=== PATIENT | female | born 1945 | race Caucasian/White ===

== ENCOUNTER 2021-04-25 13:28 | Outpatient (REF) | payer MEDICARE, SELFPAY ==
--- NOTE | ~2021-04-25 | MM_ITS ---
EXAMINATION: MM SCREENING DIGITAL BREAST TOMOSYNTHESIS, BILATERAL CLINICAL INFORMATION: Screening. Asymptomatic. The lifetime risk of breast cancer based on the Tyrer-Cuzick Model is under 2%. COMPARISON: Mammography: 01/06/2020, 10/26/2018, 10/14/2017 TECHNIQUE: Digital breast tomosynthesis is performed in both the craniocaudal and mediolateral oblique views along with computer-aided detection (CAD). Synthesized 2D images are generated from the tomosynthesis. FINDINGS: There are scattered areas of fibroglandular density (ACR BI-RADS breast composition Category b). There are no significant masses, abnormal calcifications, or other abnormalities. Parenchymal pattern is similar to prior studies. No developing density. The axilla and skin contours are unremarkable. MM/MM tomosynthesis screening BI IMPRESSION: No mammographic evidence of malignancy. ASSESSMENT: BI-RADS 1: Negative RECOMMENDATION: Routine annual mammography screening. This patient's information was entered into a reminder system with a target due date for their next mammogram.
== END 2021-04-25 13:29 | disposition home or self-care (01) ==
LOC: HO.MAMMO 13:28
PROVIDERS: Visit Provider Internal Medicine
DX: Z12.31 Encounter for screening mammogram for malignant neoplasm of breast (principal)
CPT/HCPCS: 77063; 77067

== ENCOUNTER 2022-04-30 10:26 | Outpatient (REF) | payer MEDICARE, SELFPAY ==
--- NOTE | ~2022-04-30 | MM_ITS ---
EXAMINATION: MM SCREENING DIGITAL BREAST TOMOSYNTHESIS, BILATERAL CLINICAL INFORMATION: Screening. Asymptomatic. The lifetime risk of breast cancer based on the Tyrer-Cuzick Model is 2%. COMPARISON: Mammography: 04/25/2021, 03/07/2020, 02/25/2019 TECHNIQUE: Digital breast tomosynthesis is performed in both the craniocaudal and mediolateral oblique views along with computer-aided detection (CAD). Synthesized 2D images are generated from the tomosynthesis. FINDINGS: There are scattered areas of fibroglandular density (ACR BI-RADS breast composition Category b). There are no significant masses, abnormal calcifications, or other abnormalities. Parenchymal pattern is similar to prior studies. There is no developing density or architectural abnormality. The axilla and skin contours are unremarkable. No significant changes. MM/MM tomosynthesis screening BI IMPRESSION: No mammographic evidence of malignancy. ASSESSMENT: BI-RADS 1: Negative RECOMMENDATION: Routine annual mammography screening. This patient's information was entered into a reminder system with a target due date for their next mammogram.
== END 2022-04-30 10:27 | disposition home or self-care (01) ==
LOC: HO.MAMMO 10:26
PROVIDERS: PCP Internal Medicine; Visit Provider Internal Medicine
DX: Z12.31 Encounter for screening mammogram for malignant neoplasm of breast (principal)
CPT/HCPCS: 77063; 77067

== ENCOUNTER 2023-05-06 13:14 | Outpatient (REF) | payer MEDICARE, SELFPAY | END 2023-05-06 13:15 | disposition home or self-care (01) | LOC: HO.MAMMO 13:14 | PROVIDERS: Visit Provider Internal Medicine | DX: Z12.31 Encounter for screening mammogram for malignant neoplasm of breast (principal) | CPT/HCPCS: 77063; 77067 ==

== ENCOUNTER → 2023-05-06 13:30 | Outpatient (BNV) | payer MEDICARE, SELFPAY | PROVIDERS: Visit Provider Radiology Diagnostic Radiology | DX: Z12.31 Encounter for screening mammogram for malignant neoplasm of breast (principal) | CPT/HCPCS: 77063; 77067 ==

== ENCOUNTER 2024-05-11 09:30 | Outpatient (REF) | payer MEDICARE, SELFPAY ==
--- NOTE | ~2024-05-11 | MM_ITS ---
EXAMINATION: MM SCREENING DIGITAL BREAST TOMOSYNTHESIS, BILATERAL CLINICAL INFORMATION: Screening. Asymptomatic. COMPARISON: Mammography: Comparison is made with available priors TECHNIQUE: Digital breast mammography with tomosynthesis is performed in both the craniocaudal and mediolateral oblique views along with computer-aided detection (CAD). FINDINGS: The breasts are heterogeneously dense, which may obscure small masses (ACR BI-RADS breast composition Category c). There are no significant masses, abnormal calcifications, or other abnormalities. MM/MM tomosynthesis screening BI IMPRESSION: No mammographic evidence of malignancy. ASSESSMENT: BI-RADS BI-RADS 1 - Negative RECOMMENDATION: Routine annual mammography screening. 1 year F/U This examination should not preclude the clinical evaluation of a suspicious palpable abnormality. This patient's information was entered into a reminder system with a target due date for their next mammogram. Electronically signed by: Kiki Persaud DO 05/24/2024 05:22 PM EDT
== END 2024-05-11 09:31 | disposition home or self-care (01) ==
LOC: HO.MAMMO 09:30
PROVIDERS: PCP Physician Assistant Medical; Visit Provider Obstetrics & Gynecology
DX: Z12.31 Encounter for screening mammogram for malignant neoplasm of breast (principal)
CPT/HCPCS: 77063; 77067

== ENCOUNTER → 2024-05-11 09:30 | Outpatient (BNV) | payer MEDICARE, SELFPAY | PROVIDERS: PCP Physician Assistant Medical; Visit Provider Internal Medicine | DX: Z12.31 Encounter for screening mammogram for malignant neoplasm of breast (principal) | CPT/HCPCS: 77063; 77067 ==

== ENCOUNTER 2025-05-16 09:03 | Outpatient (REF) | payer MEDICARE, SELFPAY ==
--- NOTE | ~2025-05-16 | MM_ITS ---
EXAMINATION: MM SCREENING DIGITAL BREAST TOMOSYNTHESIS, BILATERAL CLINICAL INFORMATION: Screening. Asymptomatic. COMPARISON: Mammography: Comparison is made with available priors TECHNIQUE: Digital breast mammography with tomosynthesis is performed in both the craniocaudal and mediolateral oblique views along with computer-aided detection (CAD). FINDINGS: The breasts are heterogeneously dense, which may obscure small masses. There are no significant masses, abnormal calcifications, or other abnormalities. MM/MM tomosynthesis screening BI IMPRESSION: No mammographic evidence of malignancy. ASSESSMENT: BI-RADS Category 1: Negative RECOMMENDATION: Routine annual mammography screening. 1 year F/U This examination should not preclude the clinical evaluation of a suspicious palpable abnormality. This patient's information was entered into a reminder system with a target due date for their next mammogram. Electronically signed by: Kiki Persaud DO 05/17/2025 06:00 PM EDQiana
--- OUTSIDE RECORDS SUMMARY | 2025-05-16 10:17 | XMS_ITS | Encounter Summary ---
Author Organization [facility] Address [address] [place] [address] Care Team Providers Care Cattle Rancher Name Role Phone Jacinta Bowling PA-C Primary Care Provi tip Miller Mejias MD Unavailable Unavailable Encounter Details Date Type Department Care Team (Late st Contact Info) Description 12/06/2024 Scanned Document [facility] [address] [place] [address] Plastic Surgery, Scan Social History Tobacco Use Types Packs/Day Years Used Date Smoking Tobacco: Former Cigarettes Q uit: 1996 Smokeless Tobacco: Never Alcohol Use Standard Drinks/Week Comments Yes 2 (1 standard drink = 0.6 oz pur e alcohol) PHQ-2 Answer Date Recorded PHQ-2 Total Score 0 04/13/2024 Comments No Sex and Gender Information Value Date Recorded Sex Assigned at Female 02/09/2024 11:01 AM EDT Legal Sex Female 8:31 AM EDT Gender Identity Not on file Sexual Orientation Not on file documented as of this encounter Plan of Treatment Upcoming Encounters Date Type Department Care Team (Late st Contact Info) Description 04/20/2026 9:30 AM EDT Office Visit [address] [place] [phone] Jacinta Bowling PA-C [address] [place] [address] documented as of this encounter Visit Diagnoses Not on filedocumented in this encounter Care Teams Cattle Rancher Relationship Specialty Start Date End Date Jacinta Bowling PA-C [address] [place] [address] PCP - General Internal Medicine 02/11/24 Miller Mejias MD [address] [place] [address] Referring Provider Gastroenterology 04/15/24 Barbara Cid Nurse Practitioner Urogynecology 03/22/24 documented as of this encounter
--- OUTSIDE RECORDS SUMMARY | 2025-05-16 10:17 | XMS_ITS | Encounter Summary ---
Author Organization [facility] Address [address] [place] [address] Care Team Providers Care Supervisor Drying And Winding Name Role Phone Jacinta Bowling PA-C Primary Care Provi tip Miller Mejias MD Unavailable Unavailable Encounter Details Date Type Department Care Team (Late Contact Info) Description 03/23/2024 Scanned Document [address] [phone] Jacinta Bowling PA-C [address] [place] [address] Social History Tobacco Use Types Packs/Day Years Used Date Smoking Tobacco: Former Cigarettes Q uit: 1996 Smokeless Tobacco: Never Alcohol Use Standard Drinks/Week Comments Yes 2 (1 standard drink = 0.6 oz pur e alcohol) PHQ-2 Answer Date Recorded PHQ-2 Total Score 0 02/11/2024 Comments No Sex and Gender Information Value Date Recorded Sex Assigned at Female 02/09/2024 11:01 AM EDT Legal Sex Female 8:31 AM EDT Gender Identity Not on file Sexual Orientation Not on file documented as of this encounter Plan of Treatment Upcoming Encounters Date Type Department Care Team (Late Contact Info) Description 04/20/2026 9:30 AM EDT Office Visit [address] [phone] Jacinta Bowling PA-C [address] [facility] [place] [address] documented as of this encounter Visit Diagnoses Not on filedocumented in this encounter Care Teams Supervisor Drying And Winding Relationship Specialty Start Date End Date Jacinta Bowling PA-C [address] [place] [address] PCP - General Internal Medicine 02/11/24 Miller Mejias MD [address] [address] Referring Provider Gastroenterology 04/15/24 Barbara Cid Nurse Practitioner Urogynecology 03/22/24 documented as of this encounter
--- OUTSIDE RECORDS SUMMARY | 2025-05-16 10:17 | XMS_ITS | Encounter Summary ---
Author Organization [facility] Address [address] [place] [address] Care Team Providers Care Hog Scalder Name Role Phone Jacinta Bowling PA-C Primary Care Provi tip Miller Mejias MD Unavailable Unavailable Encounter Details Date Type Department Care Team (Late st Contact Info) Description 05/11/2025 Orders Only [facility] [address] [facility] [address] [place] [phone] Jacinta Bowling PA-C [address] [place] [address] Low TSH level (Primary Dx) Social History Tobacco Use Types Packs/Day Years Used Date Smoking Tobacco: Former Cigarettes Q uit: 1996 Smokeless Tobacco: Never Alcohol Use Standard Drinks/Week Comments Yes 2 (1 standard drink = 0.6 oz pur e alcohol) [facility] Utilities Answer Date Recorded In the past 12 months has [employer], gas, oil, or water [employer] threatened to shut off services in your home? No 04/17/2025 Social Connection and Isolation Panel Answer Date Recorded In a typical week, how many times do you talk on the phone with family, friends, or neighbors? Three times a week 04/17/2025 Frequency of Social Gatherin gs with Friends and Family Not on file 04/17/2025 Attends Scientologist Services Not on file 04/17 Active Member of Clubs or Organizations Not on f ile 04/17/2025 Attends Club or Organization Meetings Not on corby e 04/17/2025 Marital Status Not on file 04/17/2025 AUDIT-C Answer Date Recorded Q1: How often do you have a drink containing alc ohol? 2-4 times a month 04/17/2025 Q2: How many drinks containi ng alcohol do you have on a typical day when you are drinking? 1 or 2 04/17/2025 Frequency of Binge Drinking Not on file 03/29 PHQ-2 Answer Date Recorded PHQ-2 Total Score 0 04/17/2025 Hunger Vital Sign Answer Date Recorded Within the past 12 months, y ou worried that your food would run out before you got the money to buy more. Never true 04/17/20 25 Within the past 12 months, t he food you bought just didn't last and you didn't have money to get more. Never true 04/17/2025 PRAPARE - Transportation Answer Date Re corded In the past 12 months, has l ack of transportation kept you from medical appointments or from getting medications? No 03/29 In the past 12 months, has l ack of transportation kept you from meetings, work, or from getting things needed for daily living? No 04/17/2025 Housing Stability Vital Sign Answer Rory e Recorded In the last 12 months, was t here a time when you were not able to pay the mortgage or rent on time? No 04/17/2025 In the past 12 months, how m any times have you moved where you were living? 0 04/17/2025 At any time in the past 12 m [facility], were you homeless or living in a chcf (including now)? No 04/17/2025 Education Answer Date Recorded What is the highest level of school you have completed or the highest degree you have received? Associate degree: occupational, technical, or vocational program 04/17/2025 Comments No Sex and Gender Information Value Date Recorded Sex Assigned at Female 02/09/2024 11:01 AM EDT Legal Sex Female 8:31 AM EDT Gender Identity Not on file Sexual Orientation Not on file documented as of this encounter Plan of Treatment Upcoming Encounters Date Type Department Care Team (Late st Contact Info) Description 04/20/2026 9:30 AM EDT Office Visit [address] [phone] Jacinta Bowling PA-C [address] [place] [address] Scheduled Orders Name Type Priority Associated Diagnoses Orde r Schedule TSH Reflex to Free T4 Lab Routine Low TSH level Ordered: 05/11/2025 documented as of this encounter Visit Diagnoses Diagnosis Low TSH level- Primary documented in this encounter Care Teams Hog Scalder Relationship Specialty Start Date End Date Jacinta Bowling PA-C [address] [place] [address] PCP - General Internal Medicine 02/11/24 Miller Mejias MD [address] [place] [address] Referring Provider Gastroenterology 04/15/24 Barbara Cid Nurse Practitioner Urogynecology 03/22/24 documented as of this encounter
--- OUTSIDE RECORDS SUMMARY | 2025-05-16 10:17 | XMS_ITS | Clinical Summary ---
Author Organization [facility] Address [address] [place] [address] Care Team Providers Care Area Supervisor Name Role Phone Jacinta Bowling PA-C Primary Care Provi tip Miller Mejias MD Unavailable Unavailable Allergies Active Allergy Reactions Criticality Noted Date Comments Levofloxacin Hives,Rash/Dermatitis Medium 02/11/2024 IV administered Medications lidocaine (XYLOCAINE) 2 % solution 4 Active PHOSPHATIDYL CHOLINE PO Take 300 mg by mouth 2 times a day. Active Ca Phosphate-Cholec alciferol (CALTRATE GUMMY BITES PO) Take 500 mg by mouth. 2 gummies Active docusate sodium (COLACE) 100 MG capsule Take 1 capsule (100 mg total) by mouth once as needed for constipation . Active traZODone (DESYREL) 50 MG tabletIndication s:Primary insomnia Take 1 tablet (50 mg total) by mouth nightly. 90 tablet 3 5 Active PANTOprazole (PROTONIX) 40 MG EC tabletIndication s:Gastroesophage al reflux disease, unspecified whether esophagitis present TAKE 1 TABLET TWICE A DAY 180 tablet 5 Active verapamil (VERELAN) 240 MG 24 hr capsuleIndicatio ns:Migraine without status migrainosus, not intractable, unspecified migraine type Take 1 capsule (240 mg total) by mouth nightly. 90 capsule 3 5 Active SUMAtriptan (IMITREX) 100 MG tabletIndication s:Other complicated headache syndrome,Migrain e without status migrainosus, not intractable, unspecified migraine type TAKE 1 TABLET ONCE NEEDED FOR MIGRAINE. MAY REPEAT IN 2 HOURS IF UNRESOLVED. DO NOT EXCEED 200MG IN 24 HOURS 9 tablet 3 5 Active Bacillus Coagulans-Inulin (ALIGN PREBIOTIC-PROBIO TIC PO) Take by mouth. 04/19/20 25 Discontinu ed(Med List Clean-up/O ld Med - No E-Cancel/N o AVS) acetaminophen (TYLENOL) 650 MG CR tablet Take 1 tablet (650 mg total) by mouth 3 times daily (every 8 hours) as needed for mild pain. 2 tabs in a.m. 04/19/20 25 Discontinu ed(Med List Clean-up/O ld Med - No E-Cancel/N o AVS) Active Problems Problem Noted Date Diagnosed Date OAB (overactive bladder) 04/15/2024 Assessment & Plan (04/19/2025 10:35 AM EDT): Follows with urogynecology. Unable to tolerate meds secondary to constipation. Does wear a pad at night due to a.m. incontinence. Does not have any issues with incontinence during the day. Migraines 02/11/2024 Assessment & Plan (04/19/2025 10:35 AM EDT): On verapamil for prevention. 1-2 headaches a month. Takes Imitrex without issue. Headaches have not changed. GERD (gastroesophageal reflux disease) 4 Assessment & Plan (04/19/2025 9:48 AM EDT): Stable with PPI. Underwent dilatation of his Schatzki's ring back in 2023. Patient has been asymptomatic. Primary insomnia 02/11/2024 Assessment & Plan (04/19/2025 10:35 AM EDT): Aches trazodone at night for sleep. 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 Following with Ortho. Vitamin D deficiency 02/11/2024 Assessment & Plan (04/19/2025 10:26 AM EDT): Compliant with vitamin D supplements. Will check vitamin D levels. Encounters Date Type Department Care Team Description 05/11/2025 Orders Only [facility] [address] [facility] [address] [place] [address] Jacinta Bowling PA-C Low TSH level (Primary Dx) 04/19/2025 9:30 AM EDT Office Visit [facility] [address] [facility] [address] [place] [address] Jacinta Bowling PA-C Encounter for Medicare annual wellness exam (Primary Dx); Primary insomnia; Other migraine without status migrainosus, not intractable ; Gastroesophageal reflux disease without esophagitis; Primary osteoarthritis involving multiple joints; Vitamin D deficiency; OAB (overactive bladder) 04/19/2025 Travel from Last 3 Months Immunizations Immunization Administration Dates Next Due Pneumococcal Conjugate 13-Valent 04/14/2020,04/28 Pneumococcal Polysaccharide 23-Valent 04/25/2021 Zoster Vaccine Live/Attenuated (Zostavax) 2012 Zoster Vaccine Recombinant (Shingrix) 04/12/2023 Social History Tobacco Use Types Packs/Day Years Used Date Smoking Tobacco: Former Cigarettes Q uit: 1996 Smokeless Tobacco: Never Tobacco Cessation:Counseling Given: Not Answered Alcohol Use Standard Drinks/Week Comments Yes 2 (1 standard drink = 0.6 oz pur e alcohol) [facility] Utilities Answer Date Recorded In the past 12 months has [employer] gas, oil, or water [employer] threatened to shut off services in your home? No 04/17/2025 Social Connection and Isolation Panel Answer Date Recorded In a typical week, how many times do you talk on the phone with family, friends, or neighbors? Three times a week 04/17/2025 Frequency of Social Gatherin gs with Friends and Family Not on file 04/17/2025 Attends Confucianism Services Not on file 04/17 Active Member [...] any time in the past 12 m [facility], were you homeless or living in a half-way (including now)? No 04/17/2025 Education Answer Date [...] on file Sexual Orientation Not on file Last Filed Vital Signs Vital Sign Reading Time Taken Comments Blood Pressure 138/78 04/19/2025 10:34 AM EDT Pulse 76 04/19/2025 9:29 AM EDT Temperature 36 C (96.8 F) 04/19/2025 9:29 AM EDT Respiratory Rate 18 04/19/2025 9:29 AM EDT Oxygen Saturation 98% 04/19/2025 9:29 AM EDT Inhaled Oxygen Concentration - - Weight 64.8 kg (142 lb 12.8 oz) 04/19/2025 9:29 AM EDT Height 162.6 cm (5' 4 ) 04/19/2025 9:29 AM EDT Body Mass Index 24.51 04/19/2025 9:29 AM EDT Plan of Treatment Upcoming Encounters Date Type Department Care Team (Late st Contact Info) Description 04/20/2026 9:30 AM EDT Office Visit [facility] [address] [facility] [address] [place] [phone] Jacinta Bowling PA-C [address] [place], [place] [phone] Health Maintenance Due Date Last Done Comments Advance Care Planning 1945 DTaP/Tdap/Td Vaccines (1 - Tdap) 1965 Zoster (Shingles) Vaccine (3 of 3) 06/07/2023 04/12/2023, 01/12/2013 Influenza Vaccine 02/25/2025 COVID-19 Vaccine (1 - season) 2025 Physical 04/15/2025 04/15/2024 Annual Wellness Visit 04/20/2026 04/19/2025 , 04/15/2024, 04/15/2024 (Previously Completed) Pneumococcal Vaccines 50+ Completed 2020, 04/14/2020, 05/23/2017 DXA Bone Density (Females,Ages 65 and older) Discontinued Hepatitis B Vaccines Aged Out No long er eligible based on patient's age to complete this topic Hepatitis C Virus Screening Discontinued RSV Vaccine 50 years and older and Patients Discontinued Procedures Procedure Name Priority Date/Time Associated Diagnosis Comments URINALYSIS WITH MICROSCOPIC Routine 05/10/2025 Encounter for Medicare annual wellness exam Primary insomnia Other migraine without status migrainosus, not intractable Gastroesophageal reflux disease without esophagitis Primary osteoarthritis involving multiple joints Vitamin D deficiency OAB (overactive bladder) LIPID PANEL WITH NONHDL Routine 05/10/2025 Encounter for Medicare annual wellness exam Primary insomnia Other migraine without status migrainosus, not intractable Gastroesophageal reflux disease without esophagitis Primary osteoarthritis involving multiple joints Vitamin D deficiency OAB (overactive bladder) TSH REFLEX TO FREE T4 Routine 05/10/2025 Encounter for Medicare annual wellness exam Primary insomnia Other migraine without status migrainosus, not intractable Gastroesophageal reflux disease without esophagitis Primary osteoarthritis involving multiple joints Vitamin D deficiency OAB (overactive bladder) VITAMIN D, 25-HYDROXY Routine 05/10/2025 Encounter for Medicare annual wellness exam Primary insomnia Other migraine without status migrainosus, not intractable Gastroesophageal reflux disease without esophagitis Primary osteoarthritis involving multiple joints Vitamin D deficiency OAB (overactive bladder) HEPATIC FUNCTION PANEL Routine 05/10/2025 Encounter for Medicare annual wellness exam Primary insomnia Other migraine without status migrainosus, not intractable Gastroesophageal reflux disease without esophagitis Primary osteoarthritis involving multiple joints Vitamin D deficiency OAB (overactive bladder) BASIC METABOLIC PANEL Routine 05/10/2025 Encounter for Medicare annual wellness exam Primary insomnia Other migraine without status migrainosus, not intractable Gastroesophageal reflux disease without esophagitis Primary osteoarthritis involving multiple joints Vitamin D deficiency OAB (overactive bladder) COMPLETE BLOOD COUNT, WITH DIFFERENTIAL Routine 05/10/2025 Encounter for Medicare annual wellness exam Primary insomnia Other migraine without status migrainosus, not intractable Gastroesophageal reflux disease without esophagitis Primary osteoarthritis involving multiple joints Vitamin D deficiency OAB (overactive bladder) from Last 3 Months Results * TSH REFLEX FREE T4 (05/10/2025) TSH, Highly Sensitive 0.005 MIU/L [facility] Blood specimen / Unknown 05/10/2025 us Jacinta Bowling PA-C LAB BLOOD ORDERABLE S Final Result [facility] * Lipid panel with nonHDL (05/10/2025) Blood Blood specimen / Unknown 05/10/2025 Jacinta Rojas Dash KIMBALL-C LAB BLOOD ORDERABLE S Final Result Performing Organization Address [facility] de Phone Number [facility] * Complete Blood Count, with Differential (05/10/2025) Blood specimen / Unknown 05/10/2025 us Jacinta oCnnfish KIMBALL-C LAB BLOOD ORDERABLE S Final Result Performing Organization Address [facility] de Phone Number [facility] * VITAMIN D, 25-HYDROXY (05/10/2025) Blood specimen / Unknown 05/10/2025 Jacinta Connfish KIMBALL-C LAB BLOOD ORDERABLE S Final Result Performing Organization Address [facility] de Phone Number [facility] * Urinalysis with Microscopic (05/10/2025) Urine Urine specimen obtained by clean catch procedure / Unknown 05/10/2025 Jacinta Crystal KIMBALL-C URINE ORDERABLES Fi nal Result Performing Organization Address [facility] de Phone Number [facility] * HEPATIC FUNCTION PANEL (05/10/2025) Blood specimen / Unknown 05/10/2025 Jacintabeto KIMBALL-C LAB BLOOD ORDERABLE S Final Result Performing Organization Address [facility] de Phone Number [facility] * Basic Metabolic Panel (05/10/2025) Blood specimen / Unknown 05/10/2025 Jacinta Crystal K[facility]ALL-C LAB BLOOD ORDERABLE S Final Result Performing Organization Address [facility] de Phone Number [facility] from Last 3 Months Insurance [employer] MEDICARE OUT OF NETWORK Care Teams Area Supervisor Relationship Specialty Start Date End Date Jacinta Bowling PA-C [address] [place] [address] PCP - General Internal Medicine 02/11/24 Miller Mejias MD [address] [place] [address] Referring Provider Gastroenterology 04/15/24 Barbara Cid Nurse Practitioner Urogynecology 03/22/24
--- OUTSIDE RECORDS SUMMARY | 2025-05-16 10:17 | XMS_ITS | Encounter Summary ---
Author Organization [facility] Address [address] [place] [address] Care Team Providers Care Exchange Consultant Name Role Phone Jacinta Bowling PA-C Primary Care Provi tip Miller Mejias MD Unavailable Unavailable Encounter Details Date Type Department Care Team (Late Contact Info) Description 06/08/2024 Scanned Document [address] [phone] Jacinta Bowling PA-C [address] [place], [place] [phone] Social History Tobacco Use Types Packs/Day Years [...] Description 04/20/2026 9:30 AM EDT Office Visit [address] [phone] Jacinta Bowling PA-C 100 [facility] [place] [address] documented as of this encounter Visit Diagnoses Not on filedocumented in this encounter Care Teams Exchange Consultant Relationship Specialty Start Date End Date Jacinta Bowling PA-C [address] [place] [address] PCP - General Internal Medicine 02/11/24 Miller Mejias MD [address] [place] [address] Referring Provider Gastroenterology 04/15/24 Barbara Cid Nurse Practitioner Urogynecology 03/22/24 documented as of this encounter
--- OUTSIDE RECORDS SUMMARY | 2025-05-16 10:17 | XMS_ITS | Encounter Summary ---
Author Organization [facility] Address [address] [place] [address] Care Team Providers Care Financial Service Rep Name Role Phone Jacinta Bowling PA-C Primary Care Provi tip Miller Mejias MD Unavailable Unavailable Encounter Details Date Type Department Care Team (Late Contact Info) Description 11/03/2024 Scanned Document [facility] PLASTIC SURG SCAN Plastic Surgery, Scan Social History Tobacco Use [...] Description 04/20/2026 9:30 AM EDT Office Visit [address] [place] [address] [phone] Jacinta Bowling PA-C [address] [place] [phone] documented as of this encounter Visit Diagnoses Not on filedocumented in this encounter Care Teams Financial Service Rep Relationship Specialty Start Date End Date Jacinta Bowling PA-C [address] [place] [address] PCP - General Internal Medicine 02/11/24 Miller Mejias MD [address] [place] [address] Referring Provider Gastroenterology 04/15/24 Barbara Cid Nurse Practitioner Urogynecology 03/22/24 documented as of this encounter
--- OUTSIDE RECORDS SUMMARY | 2025-05-16 10:17 | XMS_ITS | Encounter Summary ---
Author Organization Formerly [facility] Address [address] [place] [address] Care Team Providers Care Wing Coverer Name Role Phone Jacinta Bowling PA-C Primary Care Provi tip Miller Mejias MD Unavailable Unavailable Encounter Details Date Type Department Care Team (Late Contact Info) Description 09/23/2024 Scanned Document [facility] ORTHO SURGERY SCAN Orthopedic Surgery, Scan Social History Tobacco Use Types [...] Description 04/20/2026 9:30 AM EDT Office Visit [address] [place] [address] [phone] Jacinta Bowling PA-C [address] [place] [phone] documented as of this encounter Visit Diagnoses Not on filedocumented in this encounter Care Teams Wing Coverer Relationship Specialty Start Date End Date Jacinta Bowling PA-C [address] [place] [address] PCP - General Internal Medicine 02/11/24 Miller Mejias MD [address] [place] [address] Referring Provider Gastroenterology 04/15/24 Barbara Cid Nurse Practitioner Urogynecology 03/22/24 documented as of this encounter
--- OUTSIDE RECORDS SUMMARY | 2025-05-16 10:17 | XMS_ITS | Encounter Summary ---
Author Organization [facility] Address [address] [place] [address] Care Team Providers Care Carpenter Mine Name Role Phone Jacinta Bowling PA-C Primary Care Provi tip Miller Mejias MD Unavailable Unavailable Encounter Details Date Type Department Care Team (Late Contact Info) Description 04/29/2024 Scanned Document [address] [phone] Jacinta Bowling PA-C [address] [place] [phone] Social History Tobacco Use Types Packs/Day Years [...] Description 04/20/2026 9:30 AM EDT Office Visit [address] [phone] Jacinta Bowling PA-C [address] [facility] [place] [address] documented as of this encounter Visit Diagnoses Not on filedocumented in this encounter Care Teams Carpenter Mine Relationship Specialty Start Date End Date Jacinta Bowling PA-C [address] [place] [address] PCP - General Internal Medicine 02/11/24 Miller Mejias MD [address] [place] [address] Referring Provider Gastroenterology 04/15/24 Barbara Cid Nurse Practitioner Urogynecology 03/22/24 documented as of this encounter
== END 2025-05-16 09:04 | disposition home or self-care (01) ==
LOC: HO.MAMMO 09:03
PROVIDERS: Visit Provider Physician Assistant Medical
DX: Z12.31 Encounter for screening mammogram for malignant neoplasm of breast (principal)
CPT/HCPCS: 77063; 77067

== ENCOUNTER → 2025-05-16 09:30 | Outpatient (BNV) | payer MEDICARE, SELFPAY | PROVIDERS: Visit Provider Internal Medicine | DX: Z12.31 Encounter for screening mammogram for malignant neoplasm of breast (principal) | CPT/HCPCS: 77063; 77067 ==